=== PATIENT | male | born 1990 | race Caucasian/White ===

== ENCOUNTER 2020-06-14 15:46 | Inpatient (IN) ==
[2020-06-14 16:43] LABS: ABS Lymphocytes 1.1 10^3/ul (1.0-4.8); ABS Monocytes 0.3 10^3/ul (0-0.8); ABS Neutrophils 2.8 10^3/ul (1.5-7.7); Eosinophil % 0.5 %; Hematocrit 47 % (42-52); Hemoglobin 16.2 g/dL (14.0-18.0); Lymphocyte % 26.5 %; Mean Corpuscular HGB Conc 35 g/dL (31-36); Mean Corpuscular Hemoglobin 32 pg (27-31); Mean Corpuscular Volume 92 fL (80-94); Nucleated Red Blood Cells % 0.1; Platelet Count 170 10^3/uL (150-450); Red Blood Count 5.08 10^6 /uL (4.18-5.48); Red Cell Distribution Width 12 % (10-15); White Blood Count 4.3 10^3/uL (3.5-10.8)
[2020-06-14 16:57] LABS: Urine Appearance Clear; Urine Bilirubin Negative (Negative); Urine Blood Negative (Negative); Urine Color Straw; Urine Glucose Negative (Negative); Urine Ketones Negative (Negative); Urine Nitrite Negative (Negative); Urine Protein Negative (Negative); Urine Specific Gravity 1.005 (1.010-1.030); Urine Urobilinogen Negative (Negative)
[2020-06-14 16:59] LABS: ALT 19 U/L (7-52); AST 24 U/L (13-39); Albumin 5.4 g/dL (3.2-5.2); Albumin/Globulin Ratio 2.2 (1-3); Alkaline Phosphatase 70 U/L (34-104); Anion Gap 9 mmol/L (2-11); BUN/Creatinine Ratio 7.9 (8-20); Blood Urea Nitrogen 7 mg/dL (6-24); CO2 Carbon Dioxide 29 mmol/L (22-32); Calcium 9.9 mg/dL (8.6-10.3); Chloride 101 mmol/L (101-111); EGFR African American 121.4 (>60); EGFR Non-African American 100.4 (>60); Globulin 2.5 g/dL (2-4); Glucose 95 mg/dL (70-100); Potassium 3.3 mmol/L (3.5-5.0); Sodium 139 mmol/L (135-145); Total Protein 7.9 g/dL (6.4-8.9)
[2020-06-14 17:01] LABS: Acetaminophen < 15 mcg/mL; Alcohol, S < 10 mg/dL (<10); Salicylate < 2.50 mg/dL (<30)
[2020-06-14 17:07] LABS: Urine Benzodiazepine Screen None Detected (None Detect); Urine Cannabinoids Screen None Detected (None Detect); Urine Opiates Screen None Detected (None Detect)
[2020-06-14 17:14] LABS: TSH Ultra Thyroid Stim Horm 1.81 mcIU/mL (0.34-5.60)
[2020-06-14] MEDS ORDERED: Al Hydrox/Mg Hydrox/Simet LIQ 30 ML UDC PO PRN (19:09)
[2020-06-14] MEDS: Nicotine PATCH 21 MG/24 HR PATCH TRANSDERM SCH (21:26)
[2020-06-15 10:16] LABS: HDL Cholesterol 52.9 mg/dL
[2020-06-15] MEDS: Nicotine PATCH 21 MG/24 HR PATCH TRANSDERM SCH (10:30)
[2020-06-15] MEDS: Vitamin THERAPEUTIC TAB PO SCH (10:30)
[2020-06-15] MEDS: Nicotine GUM 2MG FRUIT FLAVOR PO PRN ×3 (13:13→20:58)
[2020-06-15] MEDS: Lisdexamfetamine 10 mg CAP(NF) PO SCH (13:42)
[2020-06-16] MEDS: Nicotine PATCH 21 MG/24 HR PATCH TRANSDERM SCH (09:08)
[2020-06-16] MEDS: Vitamin THERAPEUTIC TAB PO SCH (09:09)
[2020-06-16] MEDS: Lisdexamfetamine 10 mg CAP(NF) PO SCH (09:09)
[2020-06-16] MEDS: Nicotine GUM 2MG FRUIT FLAVOR PO PRN ×3 (10:55→19:53)
[2020-06-17] MEDS: Lisdexamfetamine 10 mg CAP(NF) PO SCH (08:04)
[2020-06-17] MEDS: Nicotine PATCH 21 MG/24 HR PATCH TRANSDERM SCH (08:04)
[2020-06-17] MEDS: Vitamin THERAPEUTIC TAB PO SCH (08:04)
[2020-06-17 08:10] VITALS: BP 143/94
[2020-06-17] MEDS: Nicotine GUM 2MG FRUIT FLAVOR PO PRN ×2 (10:16→13:54)
== END 2020-06-17 14:55 | disposition home or self-care (01) | DRG 885 ==
LOC: ED 15:46 → BSU 19:09
PROVIDERS: ADMIT Psychiatry & Neurology Psychiatry; ATTEND Psychiatry & Neurology Psychiatry